=== PATIENT | female | born 1990 | race Caucasian/White ===

== ENCOUNTER 2019-03-31 07:56 | Emergency (ER) | payer OTHER ==
[2019-03-31 08:06] VITALS: BP 111/72
--- NOTE | 2019-03-31 08:41 | UC ---
Eye Complaint HPI - HPI Summary HPI Summary: 28 yo female with the onset of right upper eyelid pain/swelling and redness x 1 day today awoke with scant crusty d/c no visual changes no UTI symptoms no photophobia gets yeast infections on antibiotics and requests diflucan - History of Current Complaint Chief Complaint: UCEye Stated Complaint: EYE IRRITATION Time Seen by Provider: 03/31/19 08:29 Hx Obtained From: Patient Onset/Duration: Gradual Onset Timing: Constant Severity Initially: Mild Severity Currently: Moderate Pain Intensity: 5 Pain Scale Used: 0-10 Numeric Location of Injury: Eye Lid (upper) Character: Dull Aggravating Factor(s): Other - touch Alleviating Factor(s): Nothing Associated Signs And Symptoms: Negative: Photophobia, Drainage (Clear), Drainage (Purulent), Vision Impairment Bilateral, Vision Impairment Right, Vision Impairment Left, Fever, Swelling Eyes: 1 - red/swollen/tender 2 - chalazion - Allergies/Home Medications Allergies/Adverse Reactions: Allergies Allergy/AdvReac Type Severity Reaction Status Date / Time No Known Allergies Allergy Verified 03/31/19 08:07 Home Medications: Home Medications Hydrocodone Bitartrate [Zohydro ER] 10 mg PO DAILY 03/31/19 [History] PMH/Surg Hx/FS Hx/Imm Hx Previously Healthy: Yes - Surgical History Surgical History: Yes Surgery Procedure, Year, and Place: hysterectomy - Family History Known Family History: Positive: Hypertension - Social History Alcohol Use: Rare Substance Use Type: None Smoking Status (MU): Never Smoked Tobacco Review of Systems All Other Systems Reviewed And Are Negative: Yes Constitutional: Positive: Negative Skin: Positive: Negative Eyes: Positive: Negative ENT: Positive: Negative Respiratory: Positive: Negative Cardiovascular: Positive: Negative Gastrointestinal: Positive: Negative Genitourinary: Positive: Negative Motor: Positive: Negative Neurovascular: Positive: Negative Musculoskeletal: Positive: Negative Neurological: Positive: Negative Psychological: Positive: Negative Physical Exam Triage Information Reviewed: Yes Appearance: Well-Appearing, No Pain Distress, Well-Nourished Vital Signs: Initial Vital Signs Temp 98.2 F 03/31/19 08:02 Pulse 96 03/31/19 08:02 Resp 18 03/31/19 08:02 BP 111/72 03/31/19 08:02 Pulse Ox 99 03/31/19 08:02 Vital Signs Reviewed: Yes Eyes: Positive: Conjunctiva Clear, Other: - Right upper lid edema as noted. Negative: Conjunctiva Inflamed, Discharge ENT: Positive: Hearing grossly normal. Negative: Nasal congestion, Nasal drainage, Trismus, Muffled voice, Hoarse voice Neck: Positive: Supple, Nontender Respiratory: Positive: Lungs clear, Normal breath sounds, No respiratory distress, No accessory muscle use Cardiovascular: Positive: RRR, No Murmur Musculoskeletal: Positive: ROM Intact, No Edema Neurological: Positive: Alert Psychological Exam: Normal Skin Exam: Normal Eye Complaint Course/Dx - Differential Dx/Diagnosis Provider Diagnosis: Chalazion of right upper eyelid Discharge ED - Sign-Out/Discharge Documenting (check all that apply): Patient Departure All imaging exams completed and their final reports reviewed: No Studies - Discharge Plan Condition: Stable Disposition: HOME Prescriptions: Cephalexin CAP* [Keflex CAP*] 500 mg PO QID #28 cap Fluconazole 150 MG (NF) [Diflucan 150 mg (NF)] 150 mg PO ONCE #1 tab Patient Education Materials: Chalazion (ED) Referrals: [place] Hernandez MD [Primary Care Provider] - If Needed [place] Meeks MD [Medical Doctor] - 3 Days (recheck in 3-7 days if not improved) Sahil Reynolds MD [Medical Doctor] - 3 Days (recheck in 3-7 days if not better) - Billing Disposition and Condition Condition: STABLE Disposition: Home
== END 2019-03-31 08:51 | disposition home or self-care (01) ==
LOC: UCEAST 07:56
DX: H00.11 Chalazion right upper eyelid (principal)
CPT/HCPCS: 99211; G0463